=== PATIENT | male | born 1970 | race Caucasian/White ===

== ENCOUNTER 2020-03-24 18:39 | Emergency (ER) | payer OTHER ==
[~2020-03-24] VITALS: Ht 177.8 cm; Wt 84.0 kg
[2020-03-24 19:45] VITALS: BP 107/55
== END 2020-03-24 19:45 | disposition home or self-care (01) | DRG 103 ==
LOC: ED 18:39
DX: R51 Headache (principal); V59.50XA Passenger in pick-up truck or van injured in collision with unspecified motor vehicles in traffic accident, initial encounter